=== PATIENT | female | born 1985 | race American Indian/Alaskan Native ===

== ENCOUNTER 2017-09-16 02:33 | Emergency (ER) | payer MEDICAID ==
[2017-09-16] MEDS ORDERED: ATROVENT IH ONE ×3 (03:18→03:28)
[2017-09-16] MEDS ORDERED: XOPENEX IH ONE ×2 (03:18→03:25)
[2017-09-16 07:52] VITALS: BP 124/85
--- NOTE | 2017-09-16 08:08 | Emergency Department Report ---
HPI - General Chief Complaint: Adult Asthma Time Seen by Provider: 09/16/17 07:47 - HPI HPI: She is a 32-year-old female with a history of asthma who presents to ED with an asthma exacerbation that started early this morning. Patient states she was sleeping when the asthma attack occured. Patient States She Been Coughing to This Prior Intermittently, Dry, Nonproductive Cough. Patient denies fevers/chills/nausea/vomiting/abdominal pain since chest pain. ED Past Medical Hx - Past Medical History Previous Medical History?: Yes Hx Asthma: Yes - Surgical History Past Surgical History?: Yes Additional Surgical History: x1 - Social History Smoking Status: Never Smoker Substance Use Type: None - Medications Home Medications: Home Medications Medication Instructions Recorded Confirmed Last Taken Type Acetamin/Codeine 120-12Mg/5 ml 5 ml PO TID PRN #60 ml 09/16/17 Unknown Rx [Tylenol/Codeine] Fluticasone/Salmeterol [Advair 2 puff PO PRN #1 blst.w.dev 09/16/17 Unknown Rx 250-50 Diskus] predniSONE [Deltasone] 20 mg PO QDAY #5 tab 09/16/17 Unknown Rx ED Review of Systems ROS: Stated complaint: SOB Other details as noted in HPI Constitutional: denies: chills, fever Eyes: denies: eye pain, eye discharge, vision change ENT: denies: ear pain, throat pain Respiratory: denies: cough, shortness of breath, wheezing Cardiovascular: denies: chest pain, palpitations Endocrine: no symptoms reported Gastrointestinal: denies: abdominal pain, nausea, diarrhea Genitourinary: denies: urgency, dysuria, hematuria, discharge Musculoskeletal: denies: back pain, joint swelling, arthralgia Skin: denies: rash, lesions Neurological: denies: headache, weakness, paresthesias Psychiatric: denies: anxiety, depression Hematological/Lymphatic: denies: easy bleeding, easy bruising Physical Exam - Physical Exam Vital Signs: Vital Signs 09/16/17 09/16/17 09/16/17 02:47 02:51 03:12 Temperature 98.8 F 98.8 F Pulse Rate 122 H 122 H 122 H Pulse Rate [ Bilateral] Respiratory 24 24 Rate Respiratory Rate [Bilateral ] Blood Pressure 110/78 110/78 Blood Pressure 110/78 [Right] O2 Sat by Pulse 86 86 86 Oximetry 09/16/17 09/16/17 09/16/17 03:29 07:46 07:51 Temperature Pulse Rate 92 H Pulse Rate [ 125 H Bilateral] Respiratory 20 20 Rate Respiratory 20 Rate [Bilateral ] Blood Pressure Blood Pressure 124/85 [Right] O2 Sat by Pulse 95 Oximetry Physical Exam: GENERAL: Alert and oriented x3, no apparent distress, Normal Gait, atraumatic. HEAD: Head is normocephalic and a-traumatic. EYES: Extra ocular muscles are intact. Pupils are equal, round, and reactive to light and accommodation. EARS: symetrical, atraumatic, non tender, ear canal clear and moderate cerumen, tympanic membrance non inflamed. gross auditory nml bilaterally. NOSE: Nose symetrical, Nontender,Nares appeared normal. MOUTH:Mouth is well hydrated and without lesions. Tonsils nonerythematous or swollen, Uvula midline, Tongue not elevated. Mucous membranes are moist. Posterior pharynx clear, no exudate or lesions. Patent airways. LUNGS: Symetrical with respiration, No wheezing, no rales or crackles, CTAB. HEART: S1, S2 present, regular rate and rhythm without murmur, no rubs, no gallops. Non tender to palpation ABDOMEN: No organomegaly was noted,Positive bowel sounds, soft, and non- distended. Nontender to palpation on all Quadrants, NO CVA tenderness. BACK: Full range of motion, no spinal tenderness, nontender to palpation. EXTREMITIES/MUSCULOSKELETAL: No cyanosis, clubbing, rash, lesions or edema. Full ROM bilaterally. UE/LE Pulses 2+ bilaterally. LE and UE 5+ strength bilaterally, NEUROLOGIC: The patient is cooperative with no focal neurologic deficits. Normal sensation in bilateral upper and lower extremities, No loss of sensation , . SKIN: Warm and dry, No lesions, No ulceration or induration present. ED Course Vital Signs 09/16/17 09/16/17 09/16/17 02:47 02:51 03:12 Temperature 98.8 F 98.8 F Pulse Rate 122 H 122 H 122 H Pulse Rate [ Bilateral] Respiratory 24 24 Rate Respiratory Rate [Bilateral ] Blood Pressure 110/78 110/78 Blood Pressure 110/78 [Right] O2 Sat by Pulse 86 86 86 Oximetry 09/16/17 09/16/17 09/16/17 03:29 07:46 07:51 Temperature Pulse Rate 92 H Pulse Rate [ 125 H Bilateral] Respiratory 20 20 Rate Respiratory 20 Rate [Bilateral ] Blood Pressure Blood Pressure 124/85 [Right] O2 Sat by Pulse 95 Oximetry ED Medical Decision Making - Medical Decision Making 32-year-old female presents with asthma exacerbation ED course: She received 2 breathing treatments with Solu-Medrol IM. Patient feeling much after my assessment. She reports better. Patient is in no respiratory acute distress I discussed the patient if worsened symptoms to return to ED. Patient states she has a nebulizer albuterol treatment and machine at home that can be used as needed. I discussed the patient to follow up with primary care physician. Patient will be sent home on Advair inhaler, prednisone and Tylenol with codeine. Patient is satting 95% on room air oxygen much better than when she came in the ED. Critical care attestation.: If time is entered above; I have spent that time in minutes in the direct care of this critically ill patient, excluding procedure time. ED Disposition Clinical Impression: Asthma exacerbation Qualifiers: Asthma severity: mild Asthma persistence: intermittent Qualified Code(s): J45.21 - Mild intermittent asthma with (acute) exacerbation Disposition: DC-01 TO HOME OR SELFCARE Is pt being admited?: No Does the pt Need Aspirin: No Condition: Stable Instructions: Asthma (ED) Additional Instructions: Make sure to follow up with the primary care physician as discussed. Take all your medications as you've been prescribed. If you have any worsening symptoms or develop new symptoms please return to ED immediately. Prescriptions: Acetamin/Codeine 120-12Mg/5 ml [Tylenol/Codeine] 5 ml PO TID PRN #60 ml PRN Reason: Pain Fluticasone/Salmeterol [Advair 250-50 Diskus] 2 puff PO PRN #1 blst.w.dev predniSONE [Deltasone] 20 mg PO QDAY #5 tab Referrals: [facility] [Outside] - 3-5 Days [facility] [Outside] - 3-5 Days [facility] [Outside] - 3-5 Days Forms: Accompanied Note, Work/School Release Form(ED) Time of Disposition: 08:09
== END 2017-09-16 08:45 | disposition home or self-care (01) ==
LOC: ED 02:33
DX: J45.21 Mild intermittent asthma with (acute) exacerbation (principal)
CPT/HCPCS: 93005; 93010; 94640; 96372; 99283; J2930

== ENCOUNTER 2017-11-11 05:13 | Emergency (ER) | payer MEDICAID ==
[2017-11-11] MEDS ORDERED: ASPIRIN PO ONE (05:47)
[2017-11-11] MEDS ORDERED: ASPIRIN ONE (05:49)
[2017-11-11 06:13] LABS: Basophils % (Auto) 0.4 % (0.0-1.8); Eosinophils # (Auto) 0.2 K/mm3 (0.0-0.4); Eosinophils % (Auto) 5.6 % (0.0-4.3); Hematocrit 34.5 % (30.3-42.9); Hemoglobin 10.8 gm/dl (10.1-14.3); Lymphocytes # (Auto) 1.1 K/mm3 (1.2-5.4); Lymphocytes % (Auto) 28.7 % (13.4-35.0); Mean Corpuscular HGB Conc 31 % (30-34); Mean Corpuscular Volume 77 fl (79-97); Monocytes # (Auto) 0.3 K/mm3 (0.0-0.8); Monocytes % (Auto) 6.7 % (0.0-7.3); Platelet Count 318 K/mm3 (140-440); Red Blood Count 4.51 M/mm3 (3.65-5.03); Red Cell Distribution Width 18.6 % (13.2-15.2)
[2017-11-11 06:14] LABS: Mean Corpuscular Hemoglobin 24 pg (28-32)
[2017-11-11 06:30] LABS: BUN/Creatinine Ratio 16; Blood Urea Nitrogen 8 mg/dL (7-17); Calcium 8.7 mg/dL (8.4-10.2); Hemolysis Index 3
--- NOTE | 2017-11-11 10:50 | Emergency Department Report ---
Blank Doc - Documentation Documentation: Patient is a 32-year-old female presenting with chest discomfort. Patient states she initially has started coughing yesterday which is mild however she progressed to be productive of some clear sputum. Patient states that she has some achy sharp pain on waking in the left chest this is associated with cough. Patient denies any fevers and sore throat headache at this time. Patient has already had a negative troponin negative. EKG per nursing protocols. X-ray will be added and patient will be followed with an MLP.
--- NOTE | 2017-11-11 11:18 | XRay Report ---
CHEST 2 VIEWS INDICATION: Cough. COMPARISON: None similar at this institution. FINDINGS: PA and lateral chest radiographs demonstrate normal cardiomediastinal silhouette. Clear lungs. Mild cervical spine degenerative changes possible. CONCLUSION: No acute disease in the chest. Thank you for the opportunity to participate in this patient's care.
--- NOTE | 2017-11-11 11:39 | Emergency Department Report ---
Minor Respiratory - HPI Chief Complaint: Chest Pain Stated Complaint: CHEST PAIN Time Seen by Provider: 11/11/17 10:47 Duration: 2 Days Minor Respiratory: Yes Cough Other History: Patient is a 32-year-old female presenting with chest discomfort. Patient states she initially has started coughing yesterday which is mild however she progressed to be productive of some clear sputum. Patient states that she has some achy sharp pain on waking in the left chest this is associated with cough. Patient denies any fevers and sore throat headache at this time. ED Review of Systems ROS: Stated complaint: CHEST PAIN Other details as noted in HPI Comment: All other systems reviewed and negative ED Past Medical Hx - Past Medical History Hx Asthma: Yes - Surgical History Additional Surgical History: x1 - Social History Smoking Status: Never Smoker Substance Use Type: None - Medications Home Medications: Home Medications Medication Instructions Recorded Confirmed Last Taken Type Acetamin/Codeine 120-12Mg/5 ml 5 ml PO TID PRN #60 ml 09/16/17 Unknown Rx [Tylenol/Codeine] Fluticasone/Salmeterol [Advair 2 puff PO PRN #1 blst.w.dev 09/16/17 Unknown Rx 250-50 Diskus] predniSONE [Deltasone] 20 mg PO QDAY #5 tab 09/16/17 Unknown Rx ALBUTEROL Inhaler [ProAir HFA 2 puff IH QID PRN #1 inhalation 11/11/17 Unknown Rx Inhaler] Benzonatate [Tessalon Perle] 100 mg PO Q8HR #12 capsule 11/11/17 Unknown Rx predniSONE [Deltasone] 20 mg PO QDAY #5 tab 11/11/17 Unknown Rx traMADol [Ultram] 50 mg PO Q6HR PRN #12 tablet 11/11/17 Unknown Rx Minor Respiratory Exam - Exam General: Vital signs noted. No distress. Alert and acting appropriately. HEENT: Yes Moist Mucous Membranes, No Pharyngeal Erythema, No Pharyngeal Exudates, No Rhinorrhea, No Conjuctival Injection, No Frontal Tenderness, No Maxillary Tenderness Ear: Neither TM Bulge, Neither TM Erythema, Neither EAC Pain, Neither EAC Discharge Neck: Yes Supple, No Adenopathy Lungs: Yes Good Air Exchange, No Wheezes, No Ronchi, No Stridor, No Cough, No Labored Respirations, No Retractions, No Use of Accessory Muscles, No Other Abnormal Lung Sounds Heart: Yes Regular, No Murmur Abdomen: Yes Normal Bowel Sounds, No Tenderness, No Peritoneal Signs Skin: No Rash, No Edema Neurologic: Alert and oriented, no deficits. Musculoskeletal: Unremarkable. ED Course Vital Signs 11/11/17 05:41 Temperature 98.3 F Pulse Rate 81 Respiratory 17 Rate Blood Pressure 132/84 O2 Sat by Pulse 96 Oximetry ED Medical Decision Making - Lab Data Result diagrams: 11/11/17 06:00 11/11/17 06:00 - EKG Data -: EKG Interpreted by Me EKG shows normal: sinus rhythm, axis, intervals, QRS complexes, ST-T waves - Radiology Data Radiology results: report reviewed wnl Critical care attestation.: If time is entered above; I have spent that time in minutes in the direct care of this critically ill patient, excluding procedure time. ED Disposition Clinical Impression: Upper respiratory infection Qualifiers: URI type: unspecified URI Qualified Code(s): J06.9 - Acute upper respiratory infection, unspecified Disposition: - TO HOME OR SELFCARE Is pt being admited?: No Does the pt Need Aspirin: No Condition: Stable Instructions: Acute Bronchitis (ED) Prescriptions: ALBUTEROL Inhaler [ProAir HFA Inhaler] 2 puff IH QID PRN #1 inhalation PRN Reason: Shortness Of Breath Benzonatate [Tessalon Perle] 100 mg PO Q8HR #12 capsule predniSONE [Deltasone] 20 mg PO QDAY #5 tab traMADol [Ultram] 50 mg PO Q6HR PRN #12 tablet PRN Reason: Pain Referrals: JANICE BREWSTER MD [Primary Care Provider] - 3-5 Days
[2017-11-11 12:01] VITALS: BP 126/89
== END 2017-11-11 12:02 | disposition home or self-care (01) ==
LOC: ED 05:13
DX: J06.9 Acute upper respiratory infection, unspecified (principal); J45.909 Unspecified asthma, uncomplicated
CPT/HCPCS: 36415; 71046; 80048; 84484; 84703; 85025